=== PATIENT | male | born 1945 | race Caucasian/White ===

== ENCOUNTER 2019-09-18 13:54 | Inpatient (IN) | payer MEDICARE ==
[~2019-09-18] VITALS: Ht 182.9 cm; Wt 80.0 kg
[~2019-09-18 13:54] MED LIST: CARV6.2512 PO; DIGO125T85 PO; DILT120C11 PO; FERR-51 PO; ONDA4TAB13 PO; TRAZ50TA66 PO
[2019-09-18] MEDS ORDERED: VANCOMYCIN PER PHARMACY MC ONE (14:30)
[2019-09-18] MEDS ORDERED: DEXTROSE 50%, 50ML VIAL IVPush ONE (14:30)
[2019-09-18] MEDS ORDERED: PIPERACILLIN/TAZO/PMX 3.375GM 50 ML IV ONE (14:30)
[2019-09-18] MEDS ORDERED: VANCOMYCIN 2,000 MG in SODIUM CHLORIDE 0.9% 500 ML IV ONE (14:30)
[2019-09-18] MEDS ORDERED: PIPERACILLIN/TAZO/PMX 3.375GM 50 ML ONE (14:37)
[2019-09-18 14:48] LABS: ALANINE AMINOTRANSFERASE 79 U/L (12-78); ALBUMIN 1.4 g/dL (3.4-5.0); ANION GAP 15 mmol/L (5-15); CALCIUM 7.2 mg/dL (8.5-10.1); CHLORIDE 106 mmol/L (98-107); CREATININE 2.25 mg/dL (0.7-1.3)
--- NOTE | 2019-09-18 14:59 | NUR ---
Pt severely detriating in condition. MD informed, peripheral pulses no longer palpable. Pt to have second iv for 1 liter ns bolus.
[2019-09-18] MEDS ORDERED: DEXTROSE 10% 500 ML IV SCH (15:00)
[2019-09-18 15:06] LABS: ALKALINE PHOSPHATASE 57 U/L (45-117); BILIRUBIN,TOTAL 0.8 mg/dL (0.2-1.0); TOTAL PROTEIN 3.9 g/dL (6.4-8.2)
[2019-09-18] MEDS ORDERED: FENTANYL PF 100 MCG/2ML IVPush ONE (15:30)
[2019-09-18] MEDS ORDERED: SODIUM CHLORIDE 0.9% 1,000ML IVBOLUS ONE (15:30)
[2019-09-18] MEDS ORDERED: FENTANYL PF 100 MCG/2ML ONE (15:37)
[2019-09-18 15:53] VITALS: BP 65/36
--- NOTE | 2019-09-18 15:54 | NUR ---
Late entry: Pt arrives to ed via ems from [facility]. Pt arrives in respiratory failure and altered awarness. EMS reports that he was found in low 70%s and not oreinted. Pt was confirmed DNR/DNI with paperwork and [facility] confirmed the same. Pt on arrival has large multiple open wounds on his back from skin cancer. Pt also has kussmal breathing and grunting. Pt has poor perfusion and severe 3rd spacing, pitting edema 4+. Pt has poor peripheral to absent pulses. Pt connected to all monitors, complete linen change and diaper removed. Second piv established on EJ neck.
--- NOTE | 2019-09-18 16:11 | NUR ---
Report to Rakel RN, pt to room 307.
[2019-09-18 16:26] LABS: D-DIMER (DIC) 6.5 ug/mlFEU (0.00-0.52); PROTIME 22.7 Seconds (9.6-11.5)
[2019-09-18] MEDS ORDERED: SODIUM CHLORIDE 0.9% 1,000 ML IV SCH (16:30)
[2019-09-18] MEDS ORDERED: HYDROcodone/APAP 5/325 TABLET PO PRN (16:30)
[2019-09-18] MEDS ORDERED: AMPICILLIN/SULBACTAM 3 GM in SODIUM CHLORIDE 0.9% 100 ML IV SCH (16:30)
[2019-09-18] MEDS ORDERED: POLYETHYLENE GLYCOL 17 GM PACKET PO PRN (16:30)
[2019-09-18] MEDS ORDERED: LORazepam 2 MG/ML, 1ML IVPush PRN (16:30)
[2019-09-18] MEDS ORDERED: DEXTROSE 4 GM TAB.CHEW PO PRN (16:30)
[2019-09-18] MEDS ORDERED: ONDANSETRON 2MG/ML, 2ML IVPush PRN (16:30)
[2019-09-18] MEDS ORDERED: HEPARIN 5,000 UNITS/ML, 1ML SQ SCH (16:30)
[2019-09-18] MEDS ORDERED: BISACODYL 10 MG SUPP PR PRN (16:30)
[2019-09-18] MEDS ORDERED: GLUCAGON 1 MG IM PRN (16:30)
[2019-09-18] MEDS ORDERED: ACETAMINOPHEN 325 MG TABLET PO PRN (16:30)
[2019-09-18] MEDS ORDERED: DEXTROSE 50%, 50ML SYRINGE IVPush PRN (16:30)
[2019-09-18] MEDS ORDERED: DOCUSATE 100 MG CAPSULE PO PRN (16:30)
[2019-09-18] MEDS ORDERED: MORPHINE SULFATE 4 MG/ML, 1ML IVPush PRN (16:30)
[2019-09-18 16:40] LABS: MEAN CORPUSCULAR HEMOGLOBIN 22.7 pg (27.5-34.5); MEAN PLATELET VOLUME 9.3 fL (7.4-10.4); PLATELET COUNT 242 x10^3/uL (130-400); RED BLOOD COUNT 4.57 x10^6/uL (4.38-5.82)
[2019-09-18 16:41] LABS: MEAN CORPUSCULAR HGB CONC 29.9 g/dL (33.2-36.2); RED CELL DISTRIBUTION WIDTH 42.3 % (9.4-14.8)
--- NOTE | 2019-09-18 16:51 | NUR ---
Upon transfering patient to oncology pt .
--- NOTE | 2019-09-18 17:14 | NUR ---
Gurpreet Fu [phone], Informed of brothers passing. Karl Alychris cousin (power of will per brother) [phone]
[2019-09-18 17:26] LABS: MD YES
[2019-09-18 17:32] LABS: TROPONIN I 0.194 ng/mL (0.000-0.045)
[2019-09-18 17:38] LABS: BAND#(MANUAL) 0.64 x10^3/uL; BANDS%(MANUAL) 22 % (0-7); EOS#(MANUAL) 0.09 x10^3/uL (0.0-0.4); EOS% (MANUAL) 3 % (1-7); LYMPH#(MANUAL) 0.81 x10^3/uL (1-3.4); LYMPHS% (MANUAL) 28 % (22-44); METAMYELOCYTES# (MANUAL) 0.67 x10^3/uL (0-0); METAMYELOCYTES% (MANUAL) 23 % (0-1); MONOS#(MANUAL) 0.26 x10^3/uL (0.3-2.7); MONOS% (MANUAL) 9 % (2-9); MYELOCYTES# (MANUAL) 0.03 x10^3/uL (0-0); MYELOCYTES% (MANUAL) 1 % (0-0); SEG#(MANUAL) 0.41 x10^3/uL (1.8-6.8); SEGS% (MANUAL) 14 % (42-75)
[2019-09-18 17:39] LABS: ANISOCYTOSIS 2+; ECHINOCYTES 1+; HYPOCHROMIA 2+; MICROCYTOSIS 1+; OVALOCYTES 1+; POLYCHROMASIA 1+
[2019-09-18 17:40] LABS: SCHISTOCYTES 1+
[2019-09-18 17:42] LABS: <PLATELET ESTIMATE> ADEQUATE; GIANT PLATELETS 1+
[2019-09-18] MEDS ORDERED: SODIUM CHLORIDE FLUSH 10ML SYR IVF SCH (21:00)
== END 2019-09-18 22:15 | disposition expired | DRG 871 ==
LOC: ED 15:26 → EDIP 16:01 → 3WST 16:30
PROVIDERS: ADMIT Hospitalist; ATTEND Hospitalist
DX: A41.9 Sepsis, unspecified organism (principal); J96.01 Acute respiratory failure with hypoxia; G93.41 Metabolic encephalopathy; R65.21 Severe sepsis with septic shock; J18.9 Pneumonia, unspecified organism; N17.9 Acute kidney failure, unspecified; E87.1 Hypo-osmolality and hyponatremia; E87.2 Acidosis; I48.91 Unspecified atrial fibrillation; D50.9 Iron deficiency anemia, unspecified; E16.2 Hypoglycemia, unspecified; Z66 Do not resuscitate; Y95 Nosocomial condition; Z85.89 Personal history of malignant neoplasm of other organs and systems; Z80.8 Family history of malignant neoplasm of other organs or systems; Z87.01 Personal history of pneumonia (recurrent); Z82.3 Family history of stroke; Z79.899 Other long term (current) drug therapy; Z20.828 Contact with and (suspected) exposure to other viral communicable diseases
CPT/HCPCS: 71045; 80053; 80162; 82728; 82962; 83605; 83615; 83735; 83880; 84100; 84145; 84484; 85025; 85049; 85379; 85384; 85610; 85730; 86140; 87040; 87147; 87181; 87635; 96365; 96375; G0378; J2543; J3010; J7030